=== PATIENT | male | born 1980 | race Hispanic/Latino ===

== ENCOUNTER → 2025-04-29 | Outpatient (CLI) | payer BC ==
--- NOTE | 2025-04-30 16:04 | HMCIMG ---
EXAM: MR Right Lower Extremity without IV Contrast, Knee. CLINICAL HISTORY: M23.91 ??? Unspecified internal derangement of right knee. TECHNIQUE: Multisequence, multiplanar magnetic resonance images of the right knee obtained without intravenous contrast. Series acquired: 3 - AX T2 - TR: 4715.0 - TE: 98.1 - ET: 21.0 - Thk: 4.0 4 - AX T1 - TR: 686.0 - TE: 16.3 - ET: 4.0 - Thk: 4.0 5 - AX 2D MERGE - TR: 915.0 - TE: 14.8 - ET: 4.0 - Thk: 4.0 6 - COR PD - TR: 2694.0 - TE: 17.1 - ET: 9.0 - Thk: 3.0 7 - COR PD FS - TR: 3039.0 - TE: 17.2 - ET: 8.0 - Thk: 3.0 8 - COR 2D MERGE - TR: 1098.0 - TE: 15.3 - ET: 4.0 - Thk: 3.1 9 - SAG PD - TR: 2616.0 - TE: 15.0 - ET: 8.0 - Thk: 3.0 10 - SAG T2 - TR: 4696.0 - TE: 97.9 - ET: 17.0 - Thk: 3.0 CONTRAST: None. COMPARISON: No prior available for comparison. FINDINGS: LIGAMENTS: Anterior Cruciate Ligament (ACL): Complete thickness tear near the femoral attachment with non-visualization of intact fibers. Posterior Cruciate Ligament (PCL): Buckling of the intact ligament due to ACL insufficiency. Medial Collateral Ligament (MCL): Intact. Lateral Collateral Ligament (LCL): Intact. TENDONS: Quadriceps and patellar tendons intact. Medial and lateral gastrocnemius tendons intact. Popliteus and iliotibial band intact. MENISCI: Horizontal cleavage tear involving the body and posterior horn of the medial meniscus. Lateral meniscus appears intact. CARTILAGE / JOINT: Mild diffuse articular cartilage thinning with early osteoarthritic changes. Reduced joint space and small periarticular osteophyte formation. Minimal joint effusion extending into the suprapatellar recess. BONES: No acute fracture or bone contusion. Marrow signal intensity within normal limits. MUSCLES: Normal muscle bulk and signal intensity. RETINACULA: Medial and lateral patellar retinacula are intact. IMPRESSION: * Complete thickness tear of the anterior cruciate ligament near the femoral attachment. * Buckling of the posterior cruciate ligament secondary to ACL deficiency. * Horizontal cleavage tear of the body and posterior horn of the medial meniscus. * Mild diffuse osteoarthritic changes with reduced joint space and small periarticular osteophytes. * Minimal knee joint effusion with suprapatellar extension. /[place]
== END | disposition home or self-care (01) ==
LOC: RAH 11:56
PROVIDERS: ATTEND Family Medicine
DX: S83.511A Sprain of anterior cruciate ligament of right knee, initial encounter (principal); S83.241A Other tear of medial meniscus, current injury, right knee, initial encounter; M23.91 Unspecified internal derangement of right knee; M17.11 Unilateral primary osteoarthritis, right knee; M25.761 Osteophyte, right knee; X58.XXXA Exposure to other specified factors, initial encounter; Y93.89 Activity, other specified; Y92.89 Other specified places as the place of occurrence of the external cause; Y99.8 Other external cause status
CPT/HCPCS: 73721